=== PATIENT | male | born 1995 | race Caucasian/White ===

== ENCOUNTER 2018-02-15 09:44 | Inpatient (IN) ==
[2018-02-15] MEDS ORDERED: ONDANSETRON 4 MG/2 ML VIAL IV STA (10:35)
[2018-02-15] MEDS ORDERED: SODIUM CHLORIDE 0.9% 1,000 ML IV STA (10:35)
[2018-02-15] MEDS ORDERED: ONDANSETRON 4 MG/2 ML VIAL ONE (11:00)
[2018-02-15 11:06] LABS: Basophils % 0.6 % (0.0-0.8); Hematocrit 46.2 VOL% (42.0-52.0); Hemoglobin 15.5 GM/DL (14.0-18.0); Immature Granulocytes % 0.6 %; Immature Granulocytes Absolute 0.03 #; Lymphocytes % 17.5 % (21.2-54.2); Mean Corpuscular HGB Conc 33.5 GM/DL (32-36); Mean Corpuscular Hemoglobin 29 PG (27-34); Mean Corpuscular Volume 85.7 FL (87-102); Mean Platelet Volume 10.2 FL (9.6-12.0); Monocytes # 0.7 10*3/uL (0.11-0.8); Monocytes % 13.1 % (1.7-12.7); Neutrophils # 3.7 10*3/uL (1.4-7.4); Neutrophils % 68.2 % (38.7-73.9); Platelet Count 185 T/CUMM (130-400); Red Blood Count 5.39 MC/CUMM (3.8-5.5); Red Cell Distribution Width 12.1 % (9.3-17.3); White Blood Count 5.4 T/CUMM (4-12)
[2018-02-15] MEDS ORDERED: ALUM/MAG/SIMETH/LIDO VISC 1:1 30 ML BOTTLE PO STA (11:21)
[2018-02-15] MEDS ORDERED: ALUM/MAG/SIMETH/LIDO VISC 1:1 30 ML BOTTLE PO ONE (11:22)
[2018-02-15] MEDS ORDERED: PROMETHAZINE INJ 25 MG in SODIUM CHLORIDE 0.9% 50 ML IV STA (11:27)
[2018-02-15] MEDS ORDERED: PROMETHAZINE 25 MG/1 ML VIAL ONE (11:27)
[2018-02-15 11:39] LABS: Bilirubin,Total 0.6 MG/DL (0.2-1.0); Calcium 9.2 MG/DL (8.5-10.1); Potassium 3.8 MMOL/L (3.5-5.1); Total Protein 7.9 G/DL (6.4-8.3)
[2018-02-15 11:48] LABS: Apearance,Urine Slightly Hazy (Clear); Blood, Urine Negative (Negative); Glucose,Urine (UA) Negative (Negative); Ketones,Urine 80 mg/dL (Negative); Mucus,Urine Many /LPF (Occasional); Nitrite,Urine Negative (Negative); Protein,Urine 100 MG/DL; RBC,Urine 2 /HPF (0-4); Urine Color Amber (Yellow); Urine Specific Gravity 1.044 (1.001-1.035); Urine Urobilinogen < 2.0 EU/DL (0.2-1.0); WBC,Urine 1 /HPF (0-6)
[2018-02-15 12:22] LABS: Bilirubin,Urine Small mg/dL (Negative)
[2018-02-15 13:02] LABS: Band Neutrophils 2 % (0-10); Lymphocytes 13 % (20-55); Platelet Estimate Adequate; Polychromasia Slight; Segmented Neutrophils 67 % (50-85); Total Cells Counted 100
[2018-02-15] MEDS ORDERED: PANTOPRAZOLE 40 MG VIAL IV ONE (13:32)
[2018-02-15] MEDS ORDERED: PANTOPRAZOLE 40 MG VIAL IV STA (13:32)
[2018-02-15 14:59] LABS: Barbiturates Screen,Urine Negative (Negative); Benzodiazepines Screen,Urine Negative (Negative); Cannabinoid Screen,Urine Negative (Negative); Opiate Screen,Urine Negative (Negative); Phencyclidine Screen,Urine Negative (Negative)
[2018-02-15] MEDS: SODIUM CHLORIDE 0.9% 1,000 ML IV SCH ×2 (15:08→21:32)
[2018-02-15] MEDS ORDERED: SUCRALFATE 1 GM/10 ML UDCUP PO SCH (15:30)
[2018-02-15] MEDS: ONDANSETRON 4 MG/2 ML VIAL IV PRN ×2 (15:34→23:13)
[2018-02-15] MEDS ORDERED: LORazepam 2 MG/1 ML VIAL IV ONE (15:38)
[2018-02-15] MEDS ORDERED: FLUCONAZOLE INJ 200 MG in PREMIX 1 EACH IV ONE (15:49)
[2018-02-15] MEDS: MEPERIDINE 25 MG/1 ML VIAL IM PRN ×2 (16:12→23:10)
[2018-02-15] MEDS: PANTOPRAZOLE 40 MG VIAL IV SCH (21:25)
[2018-02-16] MEDS: SODIUM CHLORIDE 0.9% 1,000 ML IV SCH ×3 (04:34→21:00)
[2018-02-16 06:24] LABS: Basophils % 0.5 % (0.0-0.8); Eosinophils # 0.1 10*3/uL (0.0-0.87); Eosinophils % 0.9 % (0.00-10.9); Hematocrit 42.1 VOL% (42.0-52.0); Immature Granulocytes % 0.5 %; Immature Granulocytes Absolute 0.04 #; Lymphocytes # 2.2 10*3/uL (1.4-4.0); Lymphocytes % 25.1 % (21.2-54.2); Mean Corpuscular HGB Conc 33.3 GM/DL (32-36); Mean Corpuscular Hemoglobin 29 PG (27-34); Mean Corpuscular Volume 87.2 FL (87-102); Monocytes # 0.9 10*3/uL (0.11-0.8); Monocytes % 10.2 % (1.7-12.7); Neutrophils # 5.4 10*3/uL (1.4-7.4); Neutrophils % 62.8 % (38.7-73.9); Platelet Count 187 T/CUMM (130-400); Red Blood Count 4.83 MC/CUMM (3.8-5.5); Red Cell Distribution Width 12.2 % (9.3-17.3); White Blood Count 8.6 T/CUMM (4-12)
[2018-02-16 06:43] LABS: Eosinophils 1 % (0-10); Hypochromasia Slight; Lymphocytes 21 % (20-55); Platelet Estimate Adequate; Segmented Neutrophils 62 % (50-85); Total Cells Counted 100
[2018-02-16 06:45] LABS: Calcium 8.1 MG/DL (8.5-10.1); Osmolality,Calculated 275.7 MOS/KG (273-304); Potassium 4.1 MMOL/L (3.5-5.1)
[2018-02-16] MEDS: PROMETHAZINE 25 MG/1 ML VIAL IM PRN ×2 (08:09→16:34)
[2018-02-16] MEDS: MEPERIDINE 25 MG/1 ML VIAL IM PRN ×2 (08:09→16:34)
[2018-02-16] MEDS: PANTOPRAZOLE 40 MG VIAL IV SCH ×2 (08:09→21:00)
[2018-02-16] MEDS ORDERED: LISDEXAMFETAMINE DIMESYLATE 40 MG PO SCH (09:00)
[2018-02-17] MEDS: MEPERIDINE 25 MG/1 ML VIAL IM PRN ×3 (01:31→18:01)
[2018-02-17] MEDS: SODIUM CHLORIDE 0.9% 1,000 ML IV SCH ×2 (05:07→18:52)
[2018-02-17 06:36] LABS: Basophils % 0.4 % (0.0-0.8); Eosinophils # 0.2 10*3/uL (0.0-0.87); Eosinophils % 2.1 % (0.00-10.9); Hematocrit 43.8 VOL% (42.0-52.0); Hemoglobin 14.8 GM/DL (14.0-18.0); Immature Granulocytes % 0.6 %; Immature Granulocytes Absolute 0.05 #; Lymphocytes # 2.4 10*3/uL (1.4-4.0); Lymphocytes % 30.3 % (21.2-54.2); Mean Corpuscular HGB Conc 33.8 GM/DL (32-36); Mean Corpuscular Hemoglobin 29 PG (27-34); Mean Corpuscular Volume 85.4 FL (87-102); Mean Platelet Volume 10.3 FL (9.6-12.0); Monocytes # 0.7 10*3/uL (0.11-0.8); Monocytes % 8.1 % (1.7-12.7); Neutrophils # 4.7 10*3/uL (1.4-7.4); Neutrophils % 58.5 % (38.7-73.9); Platelet Count 222 T/CUMM (130-400); Red Blood Count 5.13 MC/CUMM (3.8-5.5); Red Cell Distribution Width 11.9 % (9.3-17.3)
[2018-02-17 06:56] LABS: Hypochromasia 1+; Microcytosis 1+
[2018-02-17 06:57] LABS: Platelet Estimate Normal
[2018-02-17 07:15] LABS: Calcium 8.4 MG/DL (8.5-10.1); Potassium 4.1 MMOL/L (3.5-5.1)
[2018-02-17] MEDS: PANTOPRAZOLE 40 MG VIAL IV SCH ×2 (08:25→22:28)
[2018-02-17] MEDS: PROMETHAZINE 25 MG/1 ML VIAL IM PRN ×2 (09:50→18:07)
[2018-02-17] MEDS ORDERED: PROPOFOL 200 MG/20 ML VIAL IV ONE (10:00)
[2018-02-17] MEDS ORDERED: LIDOCAINE 100 MG/5 ML SYRINGE ONE (10:00)
[2018-02-17] MEDS: SUCRALFATE 1 GM/10 ML UDCUP PO SCH ×3 (12:02→22:28)
[2018-02-18] MEDS: SODIUM CHLORIDE 0.9% 1,000 ML IV SCH ×3 (00:30→17:09)
[2018-02-18] MEDS: SUCRALFATE 1 GM/10 ML UDCUP PO SCH ×4 (08:15→20:22)
[2018-02-18] MEDS: PANTOPRAZOLE 40 MG VIAL IV SCH ×2 (09:15→20:22)
[2018-02-19 07:58] VITALS: BP 119/77
[2018-02-19] MEDS: PANTOPRAZOLE 40 MG VIAL IV SCH (08:20)
[2018-02-19] MEDS: SUCRALFATE 1 GM/10 ML UDCUP PO SCH (08:20)
[2018-02-19] MEDS: SODIUM CHLORIDE 0.9% 1,000 ML IV SCH (08:22)
== END 2018-02-19 12:44 | disposition home or self-care (01) | DRG 392 ==
LOC: N.ED 09:44 → N.5E 09:44 → SUATTDRO 13:09 → N.5E 14:14
PROVIDERS: ADMIT Hospitalist; ATTEND Internal Medicine

== ENCOUNTER 2019-11-03 22:51 | Inpatient (IN) ==
[2019-11-03] MEDS ORDERED: PANTOPRAZOLE 40 MG VIAL IV STA (23:40)
[2019-11-03] MEDS ORDERED: METOCLOPRAMIDE 10 MG/2 ML VIAL IV STA (23:40)
[2019-11-03] MEDS ORDERED: ONDANSETRON 4 MG/2 ML VIAL IV STA (23:40)
[2019-11-03] MEDS ORDERED: SODIUM CHLORIDE 0.9% 1,000 ML IV STA (23:40)
[2019-11-03 23:53] LABS: Basophils # 0.1 10*3/uL (0.0-0.2); Basophils % 0.4 % (0.0-0.8); Eosinophils # 0.1 10*3/uL (0.0-0.87); Eosinophils % 0.2 % (0.00-10.9); Hematocrit 56.7 VOL% (42.0-52.0); Hemoglobin 19.2 GM/DL (14.0-18.0); Immature Granulocytes % 1.1 %; Lymphocytes # 0.9 10*3/uL (1.4-4.0); Mean Corpuscular HGB Conc 33.9 GM/DL (32-36); Mean Platelet Volume 10.6 FL (9.6-12.0); Monocytes % 6.2 % (1.7-12.7); Neutrophils % 89.1 % (38.7-73.9); Platelet Count 351 T/CUMM (130-400); Red Blood Count 6.67 MC/CUMM (3.8-5.5); Red Cell Distribution Width 12.4 % (9.3-17.3); White Blood Count 28.1 T/CUMM (4-12)
[2019-11-04 00:09] LABS: Albumin 5.5 G/DL (3.4-5.0); Calcium 10.7 MG/DL (8.5-10.1); Osmolality,Calculated 278.8 MOS/KG (273-304); Total Protein 9.1 G/DL (6.4-8.3)
[2019-11-04] MEDS ORDERED: SODIUM CHLORIDE 0.9% 1,000 ML IV STA (00:24)
[2019-11-04] MEDS ORDERED: LEVOFLOXACIN INJ 750 MG in PREMIX 1 EACH IV STA (00:29)
[2019-11-04] MEDS ORDERED: metroNIDAZOLE INJ 500 MG in PREMIX 1 EACH IV STA (00:29)
[2019-11-04 00:33] LABS: Band Neutrophils 8 % (0-10); Lymphocytes 2 % (20-55); Segmented Neutrophils 86 % (50-85)
[2019-11-04 00:34] LABS: Platelet Estimate Normal; Total Cells Counted 100
[2019-11-04] MEDS ORDERED: diphenhydrAMINE CAP 25 MG CAPSULE PO PRN (01:03)
[2019-11-04] MEDS ORDERED: ACETAMINOPHEN 325 MG TABLET PO PRN (01:03)
[2019-11-04] MEDS ORDERED: GLUCAGON 1 MG VIAL IM PRN (01:03)
[2019-11-04] MEDS ORDERED: ONDANSETRON 4 MG/2 ML VIAL IV PRN (01:03)
[2019-11-04] MEDS ORDERED: hydrALAZINE 20 MG/1 ML VIAL IV PRN (01:03)
[2019-11-04] MEDS ORDERED: PROMETHAZINE 25 MG/1 ML VIAL IM PRN (01:03)
[2019-11-04] MEDS ORDERED: ZALEPLON 5 MG CAPSULE PO PRN (01:03)
[2019-11-04] MEDS ORDERED: NICOTINE 21 MG/24 HR PATCH TRANSDERM PRN (01:03)
[2019-11-04] MEDS ORDERED: guaiFENesin/DM ER 600-30 MG TABLET PO PRN (01:03)
[2019-11-04] MEDS ORDERED: DOCUSATE SODIUM 100 MG CAPSULE PO PRN (01:03)
[2019-11-04] MEDS ORDERED: POTASSIUM CHLORIDE 20 MEQ TABLET PO ONE (01:10)
[2019-11-04] MEDS ORDERED: DEXTROSE 10% 250 ML BAG IV PRN (01:12)
[2019-11-04] MEDS: SODIUM CHLORIDE 0.9% 1,000 ML IV SCH ×3 (02:43→23:56)
[2019-11-04 06:11] LABS: Basophils % 0.2 % (0.0-0.8); Hematocrit 46.4 VOL% (42.0-52.0); Hemoglobin 15.7 GM/DL (14.0-18.0); Immature Granulocytes % 0.7 %; Immature Granulocytes Absolute 0.14 #; Lymphocytes # 0.6 10*3/uL (1.4-4.0); Lymphocytes % 2.9 % (21.2-54.2); Mean Corpuscular HGB Conc 33.8 GM/DL (32-36); Mean Corpuscular Volume 86.2 FL (87-102); Mean Platelet Volume 10.9 FL (9.6-12.0); Monocytes % 3.2 % (1.7-12.7); Platelet Count 234 T/CUMM (130-400); Red Blood Count 5.38 MC/CUMM (3.8-5.5); Red Cell Distribution Width 12.2 % (9.3-17.3); White Blood Count 18.9 T/CUMM (4-12)
[2019-11-04 06:32] LABS: Calcium 8.2 MG/DL (8.5-10.1); Osmolality,Calculated 275.8 MOS/KG (273-304)
[2019-11-04 06:33] LABS: Band Neutrophils 12 % (0-10); Hypochromasia 1+; Lymphocytes 3 % (20-55); Segmented Neutrophils 83 % (50-85); Total Cells Counted 100
[2019-11-04 06:34] LABS: Microcytosis 1+; Platelet Estimate Normal
[2019-11-04] MEDS: PANTOPRAZOLE 40 MG VIAL IV SCH (09:26)
[2019-11-04] MEDS: metroNIDAZOLE INJ 500 MG in PREMIX 1 EACH IV SCH ×2 (09:29→16:16)
[2019-11-04 18:05] LABS: Apearance,Urine CLOUDY (Clear); Bilirubin,Urine Negative (Negative); Blood, Urine Negative (Negative); Glucose,Urine (UA) Negative (Negative); Ketones,Urine 20 mg/dL (Negative); Mucus,Urine Occasional /LPF (Occasional); Nitrite,Urine Negative (Negative); Protein,Urine Negative; Urine Color Yellow (Yellow); Urine Specific Gravity 1.029 (1.001-1.035); Urine Urobilinogen < 2.0 EU/DL (0.2-1.0); WBC,Urine 7 /HPF (0-6)
[2019-11-04 18:08] LABS: Barbiturates Screen,Urine Negative (Negative); Benzodiazepines Screen,Urine Negative (Negative); Cannabinoid Screen,Urine Negative (Negative); Opiate Screen,Urine Positive (Negative); Phencyclidine Screen,Urine Negative (Negative)
[2019-11-04 18:57] LABS: Barbiturates Screen,Urine Negative (Negative); Benzodiazepines Screen,Urine Negative (Negative); Cannabinoid Screen,Urine Negative (Negative); Phencyclidine Screen,Urine Negative (Negative)
[2019-11-05] MEDS ORDERED: LEVOFLOXACIN INJ 500 MG in PREMIX 1 EACH IV SCH (01:00)
[2019-11-05] MEDS: metroNIDAZOLE INJ 500 MG in PREMIX 1 EACH IV SCH ×2 (01:05→09:33)
[2019-11-05 09:06] LABS: Basophils % 0.3 % (0.0-0.8); Eosinophils # 0.2 10*3/uL (0.0-0.87); Eosinophils % 2.3 % (0.00-10.9); Hematocrit 37.9 VOL% (42.0-52.0); Hemoglobin 12.9 GM/DL (14.0-18.0); Immature Granulocytes % 0.6 %; Immature Granulocytes Absolute 0.04 #; Lymphocytes # 2.2 10*3/uL (1.4-4.0); Lymphocytes % 31.3 % (21.2-54.2); Mean Corpuscular Volume 87.3 FL (87-102); Mean Platelet Volume 10.6 FL (9.6-12.0); Monocytes % 8.1 % (1.7-12.7); Neutrophils % 57.4 % (38.7-73.9); Platelet Count 190 T/CUMM (130-400); Red Blood Count 4.34 MC/CUMM (3.8-5.5); Red Cell Distribution Width 12.2 % (9.3-17.3); White Blood Count 6.9 T/CUMM (4-12)
[2019-11-05] MEDS: PANTOPRAZOLE 40 MG VIAL IV SCH (09:29)
[2019-11-05 09:33] LABS: Calcium 8.2 MG/DL (8.5-10.1); Osmolality,Calculated 277.4 MOS/KG (273-304)
[2019-11-05 12:07] VITALS: BP 124/72
== END 2019-11-05 12:40 | disposition home or self-care (01) | DRG 392 ==
LOC: N.ED 22:51 → SUATTDRO 11-04 01:03 → N.EDINP 11-04 01:03 → N.3E 11-04 01:45
PROVIDERS: ADMIT Internal Medicine; ATTEND Internal Medicine